=== PATIENT | male | born 1950 | race Caucasian/White ===

== ENCOUNTER 2018-11-26 14:26 | Emergency (ER) | payer MEDICARE, OTHER, SELFPAY ==
[2018-11-26 14:27] VITALS: BP 146/92; PULSE 100; RESP 16; TEMP 36.4; O2SAT 97; BMI 28.8
--- NOTE | 2018-11-26 15:36 | ED.DCSUM_ITS ---
- ER Visit Summary Date of Service: 11/26/18 Chief Complaint: Neck pain History of Present Illness: The patient is a 68 M with left anterior neck pain that came on suddenly today over an hour ago. It lasted about a minute. There were no other associated symptoms with this like neurologic symptoms, chest p ain, or shortness of breath. He has no history of this. He has no history of carotid disease. No association with food. No recent infections or swollen glands. No trouble breathing. No trouble moving his neck. No injuries. No history of vascular disease or dissection. Physical Examination: Afebrile and vital signs unremarkable. Patient alert and oriented. No acute distress. HEENT exam grossly unremarkable. Neck nontender with good range of motion. No bruits. Airway intact. No lymphadenopathy. No sub-mandibular or other swollen glands. Skin appears normal. Neck shows good range of motion. Heart regular. Lungs clear. Good strength and sensation. Cranial nerves grossly intact. Test Results: None indicated Emergency Department Course and Treatment: Patient had transient pain to his anterior neck. I do not believe this is a dissection or other vascular process. There is nothing to suggest lymphadenopathy. No other swollen glands. No signs of infection. Normal airway. Normal skin. Normal neurologic testing. I believe he is appropriate for outpatient follow-up. He should return right away for any new or worsening symptoms. Treatment Plan: As above Disposition: Discharged Impression: 1. Left neck pain This note was generated with [employer] dictation software. It may contain incorrect words, spelling, and punctuation that were not noted in review of the chart prior to signing ED Disposition - Plan for ED Patient: Referrals: Damian Kay NP-C [Primary Care Provider] -
--- NOTE | 2018-11-26 15:38 | DCINST.ED_ITS ---
ED Disposition - Plan for ED Patient: Instructions: NECK PAIN, No Trauma Referrals: Damian Kay, ANTENNA INSTALLER-C [Primary Care Provider] -
--- NOTE | 2018-11-26 15:38 | ED.DEP ---
ED Disposition - Plan for ED Patient: Instructions: NECK PAIN, No Trauma Referrals: Damian Kay, EXTRA GANG SUPERVISOR-C [Primary Care Provider] -
== END 2018-11-26 15:42 | disposition home or self-care (01) ==
PROVIDERS: Emergency Provider Emergency Medicine; Family Provider Nurse Practitioner Family; PCP Nurse Practitioner Family
DX: M54.2 Cervicalgia (principal); I10 Essential (primary) hypertension; Z72.0 Tobacco use; Z79.82 Long term (current) use of aspirin; Z79.899 Other long term (current) drug therapy
CPT/HCPCS: 99282

== ENCOUNTER 2020-10-23 09:58 | Emergency (ER) | payer MEDICARE, OTHER, SELFPAY ==
[2020-10-23 09:59] VITALS: BP 158/91; PULSE 73; RESP 14; TEMP 36.8; O2SAT 95; BMI 30.5
--- NOTE | 2020-10-23 10:53 | EKG12_ITS ---
Test Reason : CP Blood Pressure : / mmHG Vent. Rate : 066 BPM Atrial Rate : 066 BPM P-R Int : 202 ms QRS Dur : 166 ms QT Int : 462 ms P-R-T Axes : 070 018 068 degrees QTc Int : 484 ms Normal sinus rhythm Left bundle branch block Abnormal ECG Confirmed by PRISCILLA SHAH, FAVIO ([id number]), online editor TRENT FLEMING ([id number]) on 10/26/2020 1:17:32 PM Referred By: CRISTA Confirmed By:FAVIO WELLS MD
--- NOTE | 2020-10-23 11:00 | RAD_ITS ---
STUDY: X-RAY CHEST REASON FOR EXAM: Male, 70 years old. chest pain TECHNIQUE: Single AP portable view of the chest. COMPARISON: 03/07/2016 FINDINGS: The lungs are clear and expanded. There is no demonstrated pleural abnormality. Normal size heart. Normal mediastinum and keila. Normal visualized pulmonary arteries. Normal visualized aortic arch and descending thoracic aorta. Normal visualized thoracic spine. Normal visualized ribs, clavicles, and shoulders. There is no demonstrated abnormality of the visualized soft tissue structures of the upper abdomen. RAD/Chest 1 View (Portable) IMPRESSION: Normal x-ray examination of the chest. Electronically Signed: Damian Pompa MD at 11:27 EDT Tel , Service support ,
[2020-10-23 11:05] LABS: Absolute Lymphocyte Count 1.43 X10^3/uL (0.83-4.51); Absolute Neutrophil Count 3.1 X10^3/uL (2.0-7.7); Basophil# 0.04 X10^3/uL; Basophil% 0.8 % (0-1); Hematocrit 44.9 % (40-54); Hemoglobin 15.6 g/dL (13.0-16.5); Lymphocyte # 1.43 X10^3/ul (0.83-4.51); Lymphocyte % 28.4 % (19-41); Mean Corp Hgb Conc 34.7 g/dL (32-36); Mean Corpuscular Hgb 30.7 pg (27.0-32.0); Mean Corpuscular Volume 88.4 fL (80-94); Mean Platelet Vol. 9.4 fl (6.2-12.0); Monocyte# 0.33 X10^3/uL; Monocyte% 6.5 % (0-10); NRBC Flagged by Analyzer 0 % (0-5); Neutrophil # 3.13 X10^3/uL (2.7-7.7); Neutrophil % 62.1 % (47-70); Platelet Count 210 K/mm3 (150-450); RBC Distribution Width CV 12.1 % (11.6-14.6); RBC Distribution Width SD 39.6 fl (35.1-43.9); Red Blood Count 5.08 M/mm3 (4.6-6.2)
--- NOTE | 2020-10-23 11:08 | ED.VIS.CHEST ---
HPI History of Present Illness Chief Complaint: Palpitations Informant: patient Narrative Narrative: Patient is a 70-year-old male with a past medical history of hypertension who presents to the emergency department for an episode of chest pain. He states that this was substernal. He describes it as an ache. It occurred just as he is getting out of bed. It only lasted for maybe 15 seconds. He has never had this before. He otherwise has been feeling fine since then. He denies any shortness of breath. He did feel little sweaty during the time but did not get nauseous. No radiation of the pain. He denies any palpitations. He denies any personal history of cardiac disease but he does have a family history. He denies any leg swelling or calf pain. States that he has been under a lot of stress as her grandchild is currently admitted to [facility]. Patient denies a smoking history but does chew tobacco. He denies any cough, cold, congestion. [facility] Medical History (Updated 10/23/20 @ 10:08 by Radha Hernandez) Hypertension Home Medications Lisinopril PO DAILY 05/18/15 [History Last Taken Unknown] duloxetine 30 mg PO DAILY 05/18/15 [History Last Taken Unknown] meloxicam [Mobic] 15 mg PO DAILY 05/18/15 [History Last Taken Unknown] aspirin 81 mg PO DAILY@0800 03/07/16 [History Last Taken Unknown] tamsulosin 0.4 mg PO DAILY 03/07/16 [History Last Taken Unknown] Allergy/AdvReac Type Severity Reaction Status Date / Time No Known Allergies Allergy Verified 10/23/20 09:59 Social History Smoking Status: Unknown if ever smoked ROS ROS ED Constitutional Constitutional ED: Denies chills or fever(s) Eyes Eyes: Denies change in vision ENT ENT ED: Denies epistaxis or rhinorrhea Cardiovascular Cardiovascular: Reports chest pain; Denies palpitations Respiratory/Chest Respiratory/Chest: Denies cough, dyspnea or dyspnea on exertion Gastrointestinal Gastrointestinal: Denies abdominal pain, diarrhea, nausea or vomiting Genitourinary Genitourinary ED: Denies dysuria, hematuria or urinary frequency Musculoskeletal Musculoskeletal: Denies back pain or neck pain Integumentary Denies rash Neurologic Neurologic: Denies dizziness, headache(s) or weakness EXAM Physical Exam Const Vital Signs: 10/23/20 09:59 10/23/20 10:55 10/23/20 12:33 Temperature 98.2 F Temperature Source Temporal Pulse Rate 73 54 L Respiratory Rate 14 17 Blood Pressure 158/91 H 142/83 H Blood Pressure Mean 113 Pulse Ox 95 97 Oxygen Delivery Method Room Air Room Air Positive well nourished and well developed General Appearance ED: well developed and NAD HEENT Reports normocephalic, head/scalp atraumatic and moist mucous membranes Eyes PERRL and EOMs intact bilaterally Neck supple Chest Wall inspection of chest normal Resp normal respiratory effort and clear to auscultation bilaterally Auscultation: Negative for rales, rhonchi or wheezes Cardio regular rate, regular rhythm and no murmurs GI normal to inspection, nondistended, normoactive bowel sounds and non-tender Palpation: soft; Negative for guarding or rebound tenderness present Extremity normal to inspection General Extremety ED: Negative for edema or tenderness General Extremity: Negative for edema Neuro oriented x3, CN's II-XII intact bilaterally and no sensory deficits noted Sensorium / Orientation: alert Motor Exam: strength 5/5 throughout Psych mental status grossly normal Skin no rashes or lesions noted Heart Score History: Slightly/Non-Suspicious ECG: Normal Age: >/= 65 years Risk Factors: 1 or 2 Risk Factors Score: 3 MDM MDM MDM Narrative Medical decision making narrative: Patient presents to the emergency department for a 15-second episode of chest discomfort. He states that he is feeling completely fine now. On arrival to the emerge department is mildly hypertensive otherwise normal vital signs. He is in no acute distress. EKG obtained which did show left bundle branch block which is similar to his previous EKGs. Will check basic lab work and chest x-ray. Patient's lab work-up did not reveal a significant acute abnormality. Does not have a high white blood cell count. He is not anemic. No significant electrolyte abnormality. Troponin within normal limits. Since he has been completely asymptomatic throughout this time and it did occur early this morning I would expect some elevation of his if this was ACS. I have very low concern for PE or aortic catastrophe. He has been completely asymptomatic throughout ED stay. Ambulating around the ED does not exacerbate any symptoms. At this time I feel he is stable for discharge. Will recommend he follow-up with his PCP. If he develops any repeat symptoms or persistent symptoms he needs to come back to the ED for reevaluation. Patient understands and is agreeable this plan. Discharged home in stable condition. All questions were answered. Impression: #1 chest pain, nonspecific Lab Data Labs: Laboratory Results - last 24 hr 10/23/20 10/23/20 10:11 10:11 WBC 5.0 RBC 5.08 Hgb 15.6 Hct 44.9 MCV 88.4 MCH 30.7 MCHC 34.7 RDW Std Deviation 39.6 RDW Coeff of Tawana 12.1 Plt Count 210 MPV 9.4 Immature Gran % (Auto) 0.200 Neut % (Auto) 62.1 Lymph % (Auto) 28.4 [place] % (Auto) 6.5 Eos % (Auto) 2.0 Baso % (Auto) 0.8 Absolute Neuts (auto) 3.1 Absolute Lymphs (auto) 1.43 Nucleated RBC % 0 Sodium 137 Potassium 4.0 Chloride 102 Carbon Dioxide 26.0 Anion Gap 9 BUN 21 H Creatinine 1.30 Estim Creat Clear Calc 55.37 Est GFR (MDRD) Af Amer 70 Est GFR (MDRD) Non-Af 58 L BUN/Creatinine Ratio 16.2 Glucose 132 H Calcium 9.3 Magnesium 2.5 Troponin I High Sens 6.9 Radiography Diagnostic Testing: Radiology Impression Chest X-Ray 10/23/20 11:00 IMPRESSION: Normal x-ray examination of the chest. Electronically Signed: Damian Pompa MD at 11:27 EDT Tel , Service support , Chest x-ray interpreted by myself. One-view portable. Clear lung horner bilaterally. Normal cardiac silhouette. Normal mediastinum. No pleural effusions. Agree with radiologist interpretation. EKG Initial EKG: Attestation: I personally reviewed and interpreted this EKG as follows: (Rate of 66 bpm and normal sinus rhythm. Prolonged QRS with left bundle branch block. Otherwise no significant ST elevations or depressions. Previous EKG performed on 1115 is similar in appearance.) Discharge Plan Triage Chief Complaint: Palpitations ED Provider: John Kenney Dx/Rx/DC Orders Instructions: ED Chest Pain, Noncardiac Prescriptions: No Action meloxicam [Mobic] 15 MG tablet 15 mg PO DAILY RF: 0 duloxetine 30 MG capsule 30 mg PO DAILY RF: 0 Lisinopril PO DAILY RF: 0 tamsulosin 0.4 MG capsule 0.4 mg PO DAILY RF: 0 aspirin 81 MG tablet,chewable 81 mg PO DAILY@0800 RF: 0 Primary Care Provider: Damian Kay NP Referrals: Damian Kay NP, DIRECTOR OF CORPORATE STRATEGY-C [Primary Care Provider] - 2 Days Disposition Disposition: Home, Self Care Discharge Date/Time: 10/23/20 12:33
[2020-10-23 11:25] LABS: Anion Gap 9 (5-15); BUN 21 mg/dL (7-18); BUN/Creat Ratio 16.2 RATIO (10-20); Calcium,Total 9.3 mg/dL (8.5-10.1); Chloride 102 mmol/L (98-107); EST Glomerular Filtration Rate 58 mL/min (>60); Est Glom Filt Rate - Afr Amer 70 mL/min (>60); Estimated Creatinine Clearance 55.37 ml/min; Glucose 132 mg/dL (74-106); Magnesium 2.5 mg/dL (1.6-2.6); Sodium Level 137 mmol/L (136-145); Troponin-I HS 6.9 pg/mL (3.0-78.5)
[2020-10-23 12:33] VITALS: BP 142/83; PULSE 54; RESP 17; O2SAT 97
== END 2020-10-23 12:33 | disposition home or self-care (01) ==
PROVIDERS: Emergency Provider Emergency Medicine; PCP Nurse Practitioner Family
DX: R07.9 Chest pain, unspecified (principal); I10 Essential (primary) hypertension; Z79.899 Other long term (current) drug therapy
CPT/HCPCS: 71045; 80048; 83735; 84484; 85025; 93005; 99285; A4216

== ENCOUNTER 2021-06-02 22:39 | Emergency (ER) | payer MEDICARE, OTHER, SELFPAY ==
[2021-06-02 22:40] VITALS: BP 152/102; PULSE 94; RESP 16; TEMP 36.4; O2SAT 97; BMI 29.4
--- NOTE | 2021-06-02 22:57 | EDS_ITS ---
HPI History of Present Illness Chief Complaint: Complaint Informant: patient Narrative Narrative: Patient presents with urinary retention. He does have a history of frequent urination for a long time. He is already on Flomax. He has never had a prostate procedure or Rodrigez catheter. Today he did have a heart catheterization. They went through his right wrist. That area is doing well. But he also got fluids mild sedation that may have altered his urinary habits. He states he has pressure over the bladder and feels like he needs to urinate but cannot get more than a few dribbles out. No fevers chills sweats. No back pain or flank pain. Does not feel lightheaded or dizzy. No blood seen in the urine. [facility] Medical History Hypertension Home Medications Lisinopril PO DAILY 05/18/15 [History Last Taken Unknown] duloxetine 30 mg PO DAILY 05/18/15 [History Last Taken Unknown] meloxicam [Mobic] 15 mg PO DAILY 05/18/15 [History Last Taken Unknown] aspirin 81 mg PO DAILY@0800 03/07/16 [History Last Taken Unknown] tamsulosin 0.4 mg PO DAILY 03/07/16 [History Last Taken Unknown] Allergy/AdvReac Type Severity Reaction Status Date / Time No Known Allergies Allergy Verified 06/02/21 22:42 Social History Smoking Status: Unknown if ever smoked ROS ROS ED Constitutional Constitutional ED: Denies chills or fever(s) Respiratory/Chest Respiratory/Chest: Denies dyspnea Gastrointestinal Gastrointestinal: Reports other Details: Suprapubic pressure. ; Denies constipation, diarrhea, melena, nausea or vomiting Genitourinary Genitourinary ED: Reports other Details: He normally has urinary frequency. See history of present illness regarding acute retention by history. Musculoskeletal Musculoskeletal: Denies back pain Integumentary Denies rash Neurologic Neurologic: Denies paresthesias or weakness Allergic/Immunologic Allergic/Immunologic ED: Denies mouth swelling or urticaria EXAM Physical Exam Const Vital Signs: 06/02/21 22:40 Temperature 97.5 F L Temperature Source Temporal Pulse Rate 94 Respiratory Rate 16 Blood Pressure 152/102 H Blood Pressure Mean 118 Pulse Ox 97 Oxygen Delivery Method Room Air Positive well nourished and well developed General Appearance ED: well developed and NAD; Negative for cyanotic or diaphoretic HEENT Reports moist mucous membranes Eyes General Eye ED: Negative for pale conjunctiva or scleral icterus Neck no JVD Chest Wall inspection of chest normal Resp normal respiratory effort and clear to auscultation bilaterally Cardio regular rate GI normal to inspection, nondistended, normoactive bowel sounds GI Narrative: He has mild fullness over his lower abdomen but no palpable bladder edge. He does have some pressure when I press in the suprapubic area. But there is really no tenderness anywhere. Distal pulses are intact. Of note, they did prep the groin for heart cath today but they were ended up using his wrist and not using groin for insertion. Palpation: soft Extremity normal to inspection General Extremety ED: Negative for edema General Extremity: Negative for edema Neuro Sensorium / Orientation: alert Psych mental status grossly normal Skin no rashes or lesions noted MDM MDM MDM Narrative Medical decision making narrative: Bladder scan is showing over 660 cc of urine. He has about 850 out now. It looks clear. No visible blood. Urine shows some blood in there but no sign of infection. Patient will go home with the catheter. He will follow-up with Dr. Calle or his primary physician in about 3 days for recheck and removal. We discussed signs of infection. We discussed reasons to return and care. Discharge Plan Triage Chief Complaint: Complaint ED Provider: Meek Granado Dx/Rx/DC Orders Clinical Impression: Acute urinary retention, History of BPH Instructions: ED Urinary Retention, Male Prescriptions: No Action meloxicam [Mobic] 15 MG tablet 15 mg PO DAILY RF: 0 duloxetine 30 MG capsule 30 mg PO DAILY RF: 0 Lisinopril PO DAILY RF: 0 tamsulosin 0.4 MG capsule 0.4 mg PO DAILY RF: 0 aspirin 81 MG tablet,chewable 81 mg PO DAILY@0800 RF: 0 Primary Care Provider: Damian Kay NP Referrals: Jose Juan Calle MD [STAFF PHYSICIAN] - 2 Days Damian Kay NP, SALES AND RETAIL MANAGEMENT RECRUITER-C [Primary Care Provider] - Disposition Disposition: Home, Self Care
[2021-06-02] MEDS: Lidocaine Jelly 2% 20 ML Syringe (URO-JET) 1 APPLIC TOPICAL (23:01)
[2021-06-02 23:32] LABS: Bacteria 0 SEEN /hpf (None Seen); Mucous, Urine 0 SEEN /hpf (<or=2+); Squamous Epithelial Cells - UA 0 SEEN /hpf (0-5); White Blood Cells 0 SEEN /hpf (0-5)
[2021-06-02 23:38] LABS: Color, Urine Yellow (Yellow); Glucose, Dipstick Normal (Normal); Ketone-Dipstick Negative (Negative); Leukocyte Esterase-Dipstick Negative /ul (Negative); Nitrite-Dipstick Negative (Negative); Occult Blood-Urine 250 /ul (Negative); Protein-Dipstick 15 mg/dl (Negative); Urine Bilirubin Dipstick Negative (Negative); Urine Clarity Clear (Clear); Urine Urobilinogen Normal (Normal)
[2021-06-02 23:41] VITALS: BP 136/88; O2SAT 96
[2021-06-02 23:54] LABS: Red Blood Cells-Urine 10-25 SEEN /hpf (0-5)
== END 2021-06-03 00:19 | disposition home or self-care (01) ==
LOC: ED 23:21
PROVIDERS: Emergency Provider Emergency Medicine; PCP Nurse Practitioner Family; Visit Provider Emergency Medicine
DX: R33.9 Retention of urine, unspecified (principal)
CPT/HCPCS: 51702; 81001; 99283

== ENCOUNTER 2022-12-25 08:44 | Day surgery (SDC) | payer MEDICARE, OTHER, SELFPAY ==
[2022-12-25] VITALS (7 sets, daily range): BP systolic 83–118; BP diastolic 56–74; PULSE 60–72; RESP 16–18; TEMP 36.2–36.5; O2SAT 96–99; BMI 28.7
--- NOTE | 2022-12-25 | COLBX_PTH ---
PATIENT: SHERYL GAXIOLA LOC: EN U#:[id number] AGE/SX: 72/M ROOM: RE12/25/[address]: Dr. Girma Rivera MD : 1950 BED: DIS: 12/25/2022 SPEC #: [id number] RECD: 12/25/22 14:21 STATUS: SHELBI MARILIN #: [id number] JOHANNY: 12/25/22 00:[address]: Girma Rivera DEPT: SURGICAL PATHOLOGY RECD BY: Alexis Mallory ENTERED: 12/26/22 08:43 SP TYPE: COLON BX OTHR DR: Damian Kay, ROOM ATTENDANTS-C Tissues: Ileum, NOS Procedures: Surgery Specimen Level IV HEADER OPERATION: Colonoscopy PRE-OP DIAGNOSIS: Non-recurrent bilateral inguinal hernia TISSUE SUBMITTED: Terminal ileum biopsy MICROSCOPIC DIAGNOSIS Terminal ileum, biopsy: No pathologic change. AM:marquez 12/27/2022 MICROSCOPIC DESCRIPTION Slides are reviewed. GROSS DESCRIPTION Received in fixative is one container labeled with the patient's name and designated terminal ileum biopsy. The specimen consists of one irregular fragment of light lopez soft tissue that measures 0.3 x 0.2 x 0.1 cm. The specimen is totally submitted in one cassette. / SJ:rg 12/26/2022 TC:5 CPT: 85204
--- NOTE | 2022-12-25 09:01 | HP.PCM_ITS ---
History and Physical Date of Admission: 12/25/22 Visit Reasons: INGUINAL HERNIA Chief Complaint: hernia Manager Poker Required: No Is patient in pain?: No Allergies diazepam [From Valium] Adverse Reaction (Intermediate, Verified 11/20/22 14:53) Other Medications duloxetine 30 mg capsule,delayed release 30 mg PO DAILY 05/18/15 [History Confirmed 11/20/22] tamsulosin 0.4 mg capsule 0.4 mg PO DAILY 03/07/16 [History Confirmed 11/20/22] albuterol sulfate 90 mcg/actuation aerosol inhaler (Ventolin HFA) 2 puff inhalation Q6H PRN 12/22/21 [History Confirmed 03/02/22] esomeprazole magnesium 40 mg capsule,delayed release 40 mg PO DAILY 12/22/21 [History Confirmed 11/20/22] famotidine 40 mg tablet 40 mg PO QHS 12/22/21 [History Confirmed 11/20/22] sacubitril 49 mg-valsartan 51 mg tablet (Entresto) 1 tab PO BID 12/22/21 [History Confirmed 11/20/22] apixaban 5 mg tablet (Eliquis) 5 mg PO BID 11/20/22 [History Confirmed 11/20/22] empagliflozin 10 mg tablet (Jardiance) 10 mg PO DAILY 11/20/22 [History Confirmed 11/20/22] metoprolol succinate 25 mg tablet,extended release 24 hr 12.5 mg PO DAILY 11/20/22 [History Confirmed 11/20/22] spironolactone 25 mg tablet 25 mg PO DAILY 11/20/22 [History Confirmed 11/20/22] [facility] Medical History (Updated 11/20/22 @ 06:[address] Girma Rivera MD) Abnormal stress test Atypical chest pain Bradycardia Cardiomyopathy CKD (chronic kidney disease) Duodenal diverticulum Epigastric hernia SONIA (generalized anxiety disorder) GERD (gastroesophageal reflux disease) High triglycerides Holosystolic murmur Hypertension Impaired fasting glucose Inguinal hernia LBBB (left bundle branch block) NICM (nonischemic cardiomyopathy) Renal insufficiency Surgical History (Updated 11/20/22 @ 14:56 by Sivan Lo) Presence of combination internal cardiac defibrillator (ICD) and pacemaker S/P right heart catheterization Family History Sister Breast cancer HypertensionMother CVA (cerebral vascular accident)Brother Diabetes Social History Smoking Status: Never smoker Smokeless tobacco user: chewing tobacco HPI HPI HPI: 72-year-old gentleman is being referred by Sudhakar MEJIA for surgical consultation regarding bilateral inguinal hernias. A written copy of my surgical consult and recommendations will return to him. By report the patient has chronic left lower quadrant abdominal pain. Additional note is that the patient is complaining of dyspnea on exertion and pulmonary function tests were requested. Historically April 11, 2021 he had a stress test showing a diminished ejection fraction to 36% with fixed inferior and inferior septal and apical defect. He also has a history of paroxysmal atrial fibrillation and chronic bradycardia. The patient had an updated echocardiogram on July 31, 2022 showing a estimated ejection fraction 45 to 50%. September 11, [address] abdomen pelvis mildly enlarged spleen. Unremarkable pancreas and gallbladder. Bilateral fat-containing inguinal hernias left greater than right. Small fat-containing umbilical hernia. Enlarged prostate. Sigmoid diverticulosis. I have personally reviewed these images. The inguinal hernias are present but do not involve bowel. Apparently the patient had an additional CT scan September 11, 2022 of the abdomen and pelvis. In the distal small bowel there is suggested delayed transit. The patient is on chronic Eliquis therapy. The patient presents today stating that he is referred because of his umbilical hernia and bilateral inguinal hernias. He claims that he is completely asymptomatic at all 3 sites and that they were simply identified on CT imaging. He states that he has been having some left mid lateral abdominal pain. Also complains of the some lower lumbar back pain. The CT scan apparently was performed in attempt to help resolve that issue. The patient states he has had constipation issues show up on the CT. On my review of the images there is some slight fecal retention in the more distal small bowel rather than large bowel. My suspicion is that this also is a incidental finding likely not contributing to symptoms and seemingly not correlating with left mid lateral abdominal pain. The patient has done a Cologuard test in the past. He has never had a colonoscopy. He does have ongoing medical problems including atrial fibrillation on chronic Eliquis therapy. On review it is apparent that he does not smoke cigarettes but he does use chewing tobacco and does not demonstrated interest in stopping. He states that when he had his cardiac catheterization that he had significant bradycardia. He has a pacemaker defibrillator in place. He does have some concern about his cardiac issues potentially at the time of a colonoscopy. ROS General General: No weight change, appetite, fatigue, colon cancer, breast cancer or weakness HEENT HEENT: No difficulty swallowing, eye injury, eye surgery, swollen glands or hoarseness Endo Endocrine: No thyroid disease, diabetes mellitus, thyroid cancer, Hair loss, heat intolerance or cold intolerance Skin Skin: No rash or changing moles Breast Breast: No left breast lump, right breast lump, nipple discharge, breast pain, abnormal mammogram, abnormal US or breast enlargement Musc Musculoskeletal: No back problems, arthritis, rheumatoid arthritis, gout or joint pain Cardio Cardiovascular: Yes pacemaker, heart disease and atrial fibrillation; No murmur, high blood pressure, heart attack, heart stent, palpitations, shortness of breat with exertion or chest pain Psych Psychiatric: Yes anxiety; No depression or hearing voices Resp Respiratory: Yes shortness of breath, No sleep apnea, No cough, No COPD, No asthma, No emphysema and No wheezing Gastro Gastrointestinal: No abdominal pain, No nausea or vomiting, No diarrhea, No constipation, No blood in stool, No acid reflux, No hemorrhoids, No ulcers, No gallbladder problem and No black,tarry stools [place] Hematologic: Yes blood thinners, No blood disorders, No bleeding, No anemia and No blood clots Neuro Neurologic: No system reviewed and no additional complaints, except as documented, No as per HPI, No abnormal gait, No abnormal hearing, No abnormal movements, No abnormal speech, No behavioral changes, No burning sensations, No confusion, No convulsions, No disequilibrium, No dizziness, No localized weakness, No frequent falls, No headache(s), No lack of coordination, No loss of vision, No memory loss, No numbness, No other visual disturbances, No radicular pain, No restless legs, No sensory deficit, No syncope, No tingling, No tremor(s), No weakness and No other Exam Const General: cooperative, comfortable and no acute distress [facility] Head: normal to inspection Eyes General: appearance normal, both eyes and all related structures Neck Neck: normal visual inspection Chest Chest palpation & inspection: normal inspection of the chest Resp Effort & Inspection: normal respiratory effort Auscultation: clear to auscultation bilaterally Cardio Rate: regular rate Rhythm: regular rhythm GI Inspection: normal to inspection Palpation: soft and no hepatosplenomegaly Auscultation: normal bowel sounds Other: Small umbilical hernia noted on the superior aspect of the umbilicus. Nontender. Reducible. Other: Patient was examined upright and supine. Small bilateral inguinal hernias noted. Nontender. No findings to suggest bowel. Reducible when supine easily Musc Cervical Spine: normal cervical lordosis Skin General: no rashes or lesions noted Neuro General: patient alert and patient awake Psych Appearance: grossly normal Assessment and Plan Assessment and Plan (1) Non-recurrent bilateral inguinal hernia without obstruction or gangrene: Status: Acute Plan: 72-year-old gentleman with a symptomatic umbilical and bilateral fat-containing inguinal hernias. I have discussed with him risk-benefit to repair. I have personally reviewed his images. There is no evidence of any bowel in any of the 3 defects and is noted that the patient is 100% asymptomatic not knowing he had these until the CT imaging Regarding the patient's constipation he is taking fiber supplementation now and seemingly is improved. I suggest to him that I thought that the finding on CT involve the terminal ileum and he is not having any symptoms of nausea vomiting bloating. My suspicion at this time is that the small bowel finding likely was an incidental finding as well. The patient has never had a colonoscopy. He is having the left mid abdominal pain. I do propose for him a colonoscopy with possible biopsy or polypectomy as indicated. We did discuss the fact that he has a pacemaker defibrillator red and had some problems with bradycardia previously. We will have him hold his Eliquis for 3 days. We will have monitored anesthesia care provided. We will request that his pacemaker be checked. He has had an opportunity to ask and have questions answered. I believe that a screening colonoscopy at least one offers benefit to the patient's over other testing techniques. He has had an opportunity to ask and have questions answered. He did not particularly want to pursue hernia surgery but he is aware that if he were to become symptomatic that he is to notify either his primary care or myself. I think we could then proceed if indicated that setting. He has had an opportunity ask and have questions answered. At this point he is interested in proceeding with a colonoscopy for screening purposes and potentially to assist with evaluation of his left mid abdominal pain. I appreciate the opportunity of assisting with the surgical care Copy: Sudhakar Kay, SHONA-C Girma Rivera M.D., F.[email or web address]. I have examined the patient and the H&P has been reviewed. There are no clinical changes since date of exam. Girma Rivera M.D., F.A.C.S.
[2022-12-25] MEDS: Lactated Ringers 1,000 ML 15 ML IV (09:17)
--- NOTE | 2022-12-25 11:02 | OP.COLON_ITS ---
Patient Name: Rick Santiago Procedure Date: 12/25/2022 10:30 AM Date of : 1950 Age: 72 Procedure: Colonoscopy Indications: Abdominal pain in the left upper quadrant Providers: Girma Rivera MD Referring MD: Damian Kay Medicines: See the Anesthesia note for documentation of the administered medications Patient Profile: Last Colonoscopy: none. The patient's first colonoscopy is today. Complications: No immediate complications. Procedure: Pre-Anesthesia Assessment: - Prior to the procedure, a History and Physical was performed, and patient medications and allergies were reviewed. The patient's tolerance of previous anesthesia was also reviewed. The risks and benefits of the procedure and the sedation options and risks were discussed with the patient. All questions were answered, and informed consent was obtained. Prior Anticoagulants: The patient has taken Eliquis (apixaban), last dose was 2 days prior to procedure. ASA Grade Assessment: III - A patient with severe systemic disease. After reviewing the risks and benefits, the patient was deemed in satisfactory condition to undergo the procedure. After I obtained informed consent, the scope was passed under direct vision. Throughout the procedure, the patient's blood pressure, pulse, and oxygen saturations were monitored continuously. The Colonoscope was introduced through the anus and advanced to the terminal ileum. The colonoscopy was performed without difficulty. The patient tolerated the procedure well. The quality of the bowel preparation was good. The terminal ileum, the ileocecal valve and the appendiceal orifice were photographed. Scope In: 10:41:13 AM Scope Withdrawal Time 0 hours 11 minutes 24 seconds Scope Out: 10:56:06 AM Total Procedure Duration Time 0 hours 14 minutes 53 seconds Findings: Hemorrhoids were found on perianal exam. Multiple diverticula were found in the entire colon. The terminal ileum appeared normal. Biopsies were taken with a cold forceps for histology. Impression: - Hemorrhoids found on perianal exam. - Diverticulosis in the entire examined colon. - The examined portion of the ileum was normal. Biopsied. Recommendation: - Discharge patient to home. - Resume previous diet. - Continue present medications. - Repeat colonoscopy is not recommended due to current age (66 years or older) for screening purposes. - Telephone my office for pathology results in 1 week The patient's left mid abdominal pain is resolved. Terminal ileal biopsy was obtained because of the fecalization of small bowel seen on CT I suspect the patient's left mid abdominal pain was secondary to low-grade diverticular disease. The patient has impressive pancolonic diverticulosis with extensive disease of the sigmoid and descending colon. No acute active findings identified at this time.. Procedure Code(s): --- Professional --- 82242, Colonoscopy, flexible; with biopsy, single or multiple Diagnosis Code(s): --- Professional --- K64.9, Unspecified hemorrhoids R10.12, Left upper quadrant pain K57.30, Diverticulosis of large intestine without perforation or abscess without bleeding CPT copyright 2021 [employer]. All rights reserved. The codes documented in this report are preliminary and upon flight director review may be revised to meet current compliance requirements. Girma Rivera MD 12/25/2022 11:02:15 AM This report has been signed electronically. Number of Addenda: 0 Note Initiated On: 12/25/2022 10:30 AM
--- NOTE | 2022-12-25 11:02 | OP.CCLET_ITS ---
12/25/2022 Damian Kay Re : Colonoscopy procedure for Rick Mosleysheridan Kay This procedure was performed on Sunday, December 25, 2022. My impressions and recommendations are as follows: Impressions : - Hemorrhoids found on perianal exam. - Diverticulosis in the entire examined colon. - The examined portion of the ileum was normal. Biopsied. Recommendations : - Discharge patient to home. - Resume previous diet. - Continue present medications. - Repeat colonoscopy is not recommended due to current age (66 years or older) for screening purposes. - Telephone my office for pathology results in 1 week The patient's left mid abdominal pain is resolved. Terminal ileal biopsy was obtained because of the fecalization of small bowel seen on CT I suspect the patient's left mid abdominal pain was secondary to low-grade diverticular disease. The patient has impressive pancolonic diverticulosis with extensive disease of the sigmoid and descending colon. No acute active findings identified at this time.. My findings are described in the full procedure note, which is enclosed. If I can be of further assistance, please feel free to contact me at Doctor phone number(s): Work: . Sincerely, Girma Rivera MD 12/25/2022 11:02:15 AM This report has been signed electronically.
== END 2022-12-25 11:51 | disposition home or self-care (01) ==
LOC: EN 08:44 → AC 08:46
PROVIDERS: PCP Nurse Practitioner Family; Referring Provider Nurse Practitioner Family; Visit Provider Surgery
PROC: 0DJD8ZZ Inspection of Lower Intestinal Tract, Via Natural or Artificial Opening Endoscopic (ICD-10-PCS; CPT 45378; principal; 2022-12-25 09:55)
DX: K40.20 Bilateral inguinal hernia, without obstruction or gangrene, not specified as recurrent (principal); I48.91 Unspecified atrial fibrillation; K42.9 Umbilical hernia without obstruction or gangrene; N18.9 Chronic kidney disease, unspecified; I12.9 Hypertensive chronic kidney disease with stage 1 through stage 4 chronic kidney disease, or unspecified chronic kidney disease; K57.50 Diverticulosis of both small and large intestine without perforation or abscess without bleeding; F17.220 Nicotine dependence, chewing tobacco, uncomplicated; K64.4 Residual hemorrhoidal skin tags; Z79.01 Long term (current) use of anticoagulants; Z79.899 Other long term (current) drug therapy
CPT/HCPCS: 45380; 88305; J7120; J2405

== ENCOUNTER → 2023-04-02 | Outpatient (CLI) | payer MEDICARE, OTHER, SELFPAY ==
[2023-04-02] MEDS: Gadoterate Meglumine Diluted 10 ML, Iopamidol 5 ML, Lidocaine 1% (20 ml mdv) 5 ML, Epin... INTRAARTIC (12:20)
[2023-04-02] MEDS: Iopamidol 10 ML in Syringe 1 EACH 600 ML INTRAARTIC (12:20)
[2023-04-02] MEDS: Lidocaine 2% (5ml sdv) 5 ML VIAL.MPF (12:20)
--- NOTE | 2023-04-02 12:42 | CT_ITS ---
STUDY: CT RIGHT SHOULDER REASON FOR EXAM: Male, 73 years old. PAIN IN RIGHT SHOULDER. ARTHROGRAM RADIATION DOSAGE (If Supplied By Facility): CTDIvol = ( 19.92 ) mGy, DLP = ( 564.15 ) mGycm TECHNIQUE: The patient was scanned in a multi detector CT scanner. High resolution transaxial imaging was performed following intra-articular contrast administration.. Sagittal and coronal images were reconstructed. Individualized dose optimization techniques were used for this CT. COMPARISON: None. FINDINGS: There is mild osteoarthritis of the glenohumeral articulation, with mild articular joint space narrowing and mild osteoarthritic spurring. Normal glenoid rim, neck and visualized scapula. Normal humeral head, neck and tuberosities. Normal coracoid process. Normal visualized lateral clavicle. There is moderate osteoarthritis with articular joint space narrowing and with osteoarthritic spurring. There is a Type II morphology (curved), with a neutral orientation. Normal visualized muscles and soft tissue structures. CT/Extremity Upper WITH Contrast IMPRESSION: Degenerative changes of the acromioclavicular joint and glenohumeral joint. No evidence of a rotator cuff tear. Electronically Signed: Anthony Ball MD at 14:18 EST ,
--- NOTE | 2023-04-02 13:47 | RAD_ITS ---
STUDY: X-RAY - RIGHT SHOULDER REASON FOR EXAM: Male, 73 years old. PAIN TECHNIQUE: 3 view(s) of the shoulder. COMPARISON: None. FINDINGS: Imaging following right shoulder arthrogram was obtained. RAD/Shoulder min 2 Views IMPRESSION: Contrast is seen within the right shoulder joint. Electronically Signed: Anthony Ball MD at 12:20 EST ,
--- NOTE | 2023-04-02 13:54 | PCM.OP.PRO ---
Procedure Report Date of Procedure: 04/02/23 Assessment & Plan Assessment/Plan (1) Right shoulder pain: QUALIFIERS: Chronicity: chronic Qualified Code(s): M25.511 - Pain in right shoulder; G89.29 - Other chronic pain PLAN: PROCEDURE: Arthrogram-CT of right shoulder ORDERING PROVIDER: Dr. Reynolds INDICATION: Male, 73 years old. Right shoulder pain. PROVIDER: Monica Schuler APRN-[employer]VAL [employer]INE ENGINEER CONSENT: The procedure as well as the benefits and possible complications including bleeding and infection were explained to the patient. Informed consent was obtained. TECHNIQUE: The patient was positioned supine. The overlying skin was prepped and draped in the usual sterile fashion. Following injection of local anesthetic with 2% lidocaine and under direct fluoroscopic guidance, a 22-gauge spinal needle was placed into the right shoulder. 2 cc of Isovue 300 was injected for confirmation. Following this, 10 cc of arthrogram contrast was injected (gadoterate, iopamidol, lidocaine, and epinephrine). All elements of maximal sterile barrier technique followed. Patient tolerated procedure well. IMPRESSION: Successful fluoroscopic guided arthrogram of right shoulder. Procedures Radiology Radiology Xray Procedures: 89881 Arthrogram Shoulder
== END | disposition home or self-care (01) ==
LOC: RAD 12:29
PROVIDERS: PCP Nurse Practitioner Family; Referring Provider Student in an Organized Health Care Education/Training Program; Visit Provider Student in an Organized Health Care Education/Training Program
DX: M25.511 Pain in right shoulder (principal); G89.29 Other chronic pain
CPT/HCPCS: 23350; 73030; 73040; 73201; Q9967